=== PATIENT | female | born 1990 | race Caucasian/White ===

== ENCOUNTER 2017-01-01 18:32 | Emergency (ER) | payer OTHER ==
[2017-01-01 19:25] LABS: Urine Bacteria 1+ (Absent); Urine Bilirubin Negative (Negative); Urine Glucose Negative (Negative); Urine Nitrite Negative (Negative)
[2017-01-01] MEDS ORDERED: NS 0.9% 1000 ML* 1,000 ML IV ONE (21:33)
[2017-01-01] MEDS ORDERED: Ketorolac INJ* 30 MG/ML 1 ML VIAL IV PUSH ONE (21:33)
[2017-01-01] MEDS ORDERED: Ondansetron INJ* 2 MG/ML VIAL IV ONE (21:33)
[2017-01-01 22:29] LABS: Hematocrit 42 % (35-47); Mean Corpuscular HGB Conc 34 g/dl (31-36); Mean Corpuscular Hemoglobin 30 pg (27-31); Mean Corpuscular Volume 89 fL (80-97); Mean Platelet Volume 8 um3 (7.4-10.4); Red Blood Count 4.69 10^6/ul (4.0-5.4); Red Cell Distribution Width 14 % (10.5-15); White Blood Count 11.1 10^3/ul (3.5-10.8)
[2017-01-01 22:30] LABS: Add Diff/Slide Review? Slide Review Added; Comments Flag Yes
[2017-01-01 22:43] LABS: Anion Gap 7 mmol/L (2-11); Blood Urea Nitrogen 9 mg/dL (6-24); CO2 Carbon Dioxide 28 mmol/L (22-32); Calcium 9.3 mg/dL (8.6-10.3); Chloride 100 mmol/L (101-111); EGFR African American 108.4 (>60); EGFR Non-African American 84.3 (>60); Glucose 102 mg/dL (70-100); Potassium 3.4 mmol/L (3.5-5.0); Sodium 135 mmol/L (133-145)
--- NOTE | 2017-01-01 22:46 | ED ---
Damian Soto Aidan, scribed for Guzman Corcoran MD on 01/01/17 at 2140 . Back Pain - HPI Summary HPI Summary: 26 y/o female presents to the ED via transfer from the Urgent Care with a complaint of acute, constant, [id number] (8/10), right-sided back pain that has persisted for the past 4 days. Additionally, this morning she woke up with a moderate fever. At the Urgent Care, the physician who recommended the transfer thought the patient had pyelo and gave her a dose of Cipro. Hx of 2-3 kidney infections and recurrent UTIs. - History of Current Complaint Chief Complaint: EDUrogenitalProblems Stated Complaint: R/O KIDNEY STONE-SENT FROM [facility] Time Seen by Provider: 01/01/17 21:29 Hx Obtained From: Patient Onset/Duration: Sudden Onset, Lasting Days, Still Present Onset/Duration: Started Days Ago, Still Present Timing: Constant Severity Initially: Moderate Severity Currently: Moderate Pain Intensity: 8 Pain Scale Used: 0-10 Numeric Character: Unable to Describe - feels like a kidney pain Aggravating Symptom(s): Nothing - unknown Alleviating Symptom(s): Nothing - unknown Associated Signs And Symptoms: Positive: Fever - Allergies/Home Medications Allergies/Adverse Reactions: Allergies Allergy/AdvReac Type Severity Reaction Status Date / Time No Known Allergies Allergy Verified 07/16/15 09:38 PMH/Surg Hx/FS Hx/Imm Hx - Surgical History Surgery Procedure, Year, and Place: L ankle surgery Infectious Disease History: No Infectious Disease History: Denies: History Other Infectious Disease, Traveled Outside the [place] in Last 30 Days - Family History Known Family History: Positive: Hypertension - Social History Occupation: Employed Full-time Lives: Alone Alcohol Use: None Substance Use Type: Reports: None Smoking Status (MU): Never Smoked Tobacco Review of Systems Constitutional: Negative Eyes: Negative ENT: Negative Cardiovascular: Negative Respiratory: Negative Gastrointestinal: Negative Positive: flank pain - right sided back/flank pain. Negative: burning, dysuria , discharge, frequency, hematuria, incontinence, urgency Musculoskeletal: Negative Skin: Negative Neurological: Negative Psychological: Normal All Other Systems Reviewed And Are Negative: Yes Physical Exam Triage Information Reviewed: Yes Vital Signs On Initial Exam: Initial Vitals Temp Pulse Resp BP Pulse Ox 99 F 112 20 144/101 100 01/01/17 18:41 01/01/17 18:41 01/01/17 18:41 01/01/17 18:41 01/01/17 18:41 Vital Signs Reviewed: Yes Appearance: Positive: Well-Appearing, No Pain Distress Skin: Positive: Warm Head/Face: Positive: Normal Head/Face Inspection Eyes: Positive: MARTIN ENT: Positive: Hearing grossly normal Neck: Positive: Supple Respiratory/Lung Sounds: Positive: Clear to Auscultation, Breath Sounds Present Cardiovascular: Positive: Normal Abdomen Description: Positive: Nontender, No Organomegaly, Soft. Negative: CVA Tenderness (R), CVA Tenderness (L) Bowel Sounds: Positive: Present Neurological: Positive: Sensory/Motor Intact, Alert, Oriented to Person Place, Time Psychiatric: Positive: Affect/Mood Appropriate Diagnostics - Vital Signs Vital Signs Temp Pulse Resp BP Pulse Ox 01/01/17 20:30 99.9 F 89 14 133/71 99 01/01/17 19:40 99.2 F 96 14 133/92 99 01/01/17 18:41 99 F 112 20 144/101 100 - Laboratory Lab Results: Lab Results 01/01/17 Range/Units 18:56 Urine Color Straw Urine Appearance Clear Urine pH 7.0 (5-9) Ur Specific [place] 1.006 L (1.010-1.030) Urine Protein Negative (Negative) Urine Ketones 1+ H (Negative) Urine Blood 1+ H (Negative) Urine Nitrate Negative (Negative) Urine Bilirubin Negative (Negative) Urine Urobilinogen Negative (Negative) Ur Leukocyte Esterase 2+ H (Negative) Urine WBC (Auto) 3+(>20/hpf) H (Absent) Urine RBC (Auto) Trace(0-2/hpf) (Absent) Ur Squamous Epith Cells Present H (Absent) Urine Bacteria 1+ H (Absent) Urine Glucose Negative (Negative) Result Diagrams: 01/01/17 22:15 01/01/17 22:15 Lab Statement: Any lab studies that have been ordered have been reviewed, and results considered in the medical decision making process. Re-Evaluation - Re-Evaluation First Eval Re-Evaluation Time: 23:00 - results d/w pt Back Pain Course/Dx - Diagnoses Provider Diagnoses: UTI (urinary tract infection) Discharge - Discharge Plan Condition: Stable Disposition: HOME Discharge Disposition Comment: Please follow up with your primary care physician. Prescriptions: Ciprofloxacin TAB* [Cipro Tab*] 250 mg PO BID #14 tab Patient Education Materials: Urinary Tract Infection in Women (ED) Referrals: No Primary Care Phys,NOPCP [Primary Care Provider] - The documentation as recorded by the Damian vu Aidan accurately reflects the service I personally performed and the decisions made by me, Guzman Corcoran MD.
[2017-01-01 23:28] VITALS: BP 122/73
== END 2017-01-01 23:27 | disposition home or self-care (01) ==
LOC: ED 18:32
DX: N39.0 Urinary tract infection, site not specified (principal); R50.9 Fever, unspecified; R10.84 Generalized abdominal pain
CPT/HCPCS: 36415; 80048; 81003; 81015; 84702; 85025; 87086; 96361; 96374; 96375; 99283; J1885; J2405